=== PATIENT | female | born 1955 | race Asian ===

== ENCOUNTER → 2017-08-09 | Outpatient (CLI) | payer BC ==
--- NOTE | 2017-08-11 10:51 | Diagnostic Imaging Report ---
PROCEDURE: BONE DXA DUAL ENERGY COMPARISON:None. INDICATIONS:Disorder of bone density FINDINGS:Evaluation of the left hip and lumbar spine was performed utilizing DEXA Hologic bone densitometer. The study is technically adequate. The patient does not have any known previous non-traumatic fractures or other risk factors. Left hip total bone mineral density: 0.857 gm/cm2, T-score is -0.7 Z-score is 0.5. Lumbar spine total bone mineral density: 0.876 gm/cm2, T-score is -1.6, Z-score is 0.1. Impression: 1. Decreased bone mineral density of the left hip classified as osteopenia, fracture risk is increased. 2. Decreased bone mineral density of the lumbar spine classified as osteopenia, fracture risk is increased. 3. 10 year fracture risk of a major osteoporotic fracture is 4.4%. 10 year fracture risk of the hip fracture is 0.4%. The patient's fracture risk is compared to an age-matched control. Medical evaluation for secondary causes of low bone mineral density may be appropriate. Correlate clinically for the necessity and timing of the next bone mineral density study. National Osteoporosis Foundation recommendations: Initial therapy to reduce fracture risk in postmenopausal women with -BMD t-scores below -2.0 by central DXA with no risk factors -BMD t-scores below -1.5 by central CXA with one or more risk factors (first deg relative with hip fracture, prior personalfracture, low body weight, smoking) -A prior vertebral or hip fracture AACE n(Clinical Endocrinology) recommends treating the following: Postmenopausal women who have osteoporosis as diagnosed by fragility fractures or t-score -2.5 or below. Postmenopausal women who have risk factors (including hx of hip fracture, low body weight, smoking, risk of falling, high bone turnover, advancing age) and borderline low BMD T-scores of -1.5 or below Adequate intake of calcium (at least 1200mg/day) and vitamin D (400-800IU/day). Regular weight bearing and muscle-strengthening exercises Avoid smoking and excessive alcohol Moi De Guzman D.O. Dictated by: Moi De Guzman D.O. on 08/11/2017 at 10:52 Electronically approved by: Moi De Guzman D.O. on 08/11/2017 at 10:52
--- NOTE | 2017-08-11 16:00 | Diagnostic Imaging Report ---
#[id number] - MGSCRBIL #BILATERAL DIGITAL SCREENING MAMMOGRAM WITH CAD: 08/09/2017 CLINICAL: Routine screening. Comparison is made to exams dated: 05/15/2015 mammogram and 01/21/2014 mammogram - [facility]. Current study contains 4 films. The tissue of both breasts is heterogeneously dense. This may lower the sensitivity of mammography. Current study was also evaluated with a Computer Aided Detection (CAD) system. There are benign calcifications in both breasts. There also are benign lymph nodes in both breasts. Additionally there are benign vascular calcifications in the right breast. No significant masses, calcifications, or other findings are seen in either breast. There has been no significant interval change. IMPRESSION: BENIGN There is no mammographic evidence of malignancy. A 1 year screening mammogram is recommended. The patient will be notified by letter of the results. Moi rudolph/breezy:08/11/2017 13:14:16 Senior Administrator Support: Kadi KIDD(Virgie)(M), [facility] letter sent: Compared to Prior B9 Mammogram BI-RADS: 2 Benign
== END ==
LOC: MAMMO 14:04
PROVIDERS: ATTEND Family Medicine
DX: Z12.31 Encounter for screening mammogram for malignant neoplasm of breast (principal); M85.9 Disorder of bone density and structure, unspecified
CPT/HCPCS: 77067; 77080

== ENCOUNTER → 2018-08-28 | Outpatient (CLI) | payer MEDICARE, BC | LOC: MAMMO 09:55 | PROVIDERS: ATTEND Family Medicine | DX: Z12.31 Encounter for screening mammogram for malignant neoplasm of breast (principal) | CPT/HCPCS: 77067 ==

== ENCOUNTER 2020-02-20 07:54 | Observation (INO) | payer MEDICARE, BC ==
[2020-02-17 10:21] LABS: BASOPHILS % 0.4 % (0.0-1.0); EOSINOPHILS # (AUTO) 0.1 (0.0-0.4); EOSINOPHILS % 2.6 % (0.0-6.0); HEMATOCRIT 37.7 % (34.2-44.1); HEMOGLOBIN 12.6 g/dL (12.0-16.0); LYMPHOCYTES # (AUTO) 2.2 (1.0-3.2); LYMPHOCYTES % 43.1 % (18.0-39.1); MEAN CORPUSCULAR HEMOGLOBIN 30.4 pg (28-32); MEAN CORPUSCULAR HGB CONC 33.4 g/dL (31-35); MEAN CORPUSCULAR VOLUME 90.8 fL (81-99); MONOCYTES # (AUTO) 0.3 (0.2-0.8); MONOCYTES % 5.8 % (4.4-11.3); NEUTROPHILS # (AUTO) 2.4 (2.1-6.9); NEUTROPHILS % 47.9 % (38.7-80.0); PLATELET COUNT 212 x10e3/uL (140-360); RED BLOOD COUNT 4.15 x10e6/uL (3.6-5.1); RED CELL DISTRIBUTION WIDTH 11.9 % (11.7-14.4)
[2020-02-17 10:36] LABS: BLOOD UREA NITROGEN 14 mg/dL (7-26); BUN/CREATININE RATIO 18 (6-25); CALCIUM 9.2 mg/dL (8.4-10.2); CARBON DIOXIDE 32 mmol/L (22-29); CHLORIDE 102 mmol/L (98-107); EST GLOMERULAR FILTRATION RATE > 60 ML/MIN (60-); GLUCOSE 143 mg/dL (74-118); SODIUM 140 mmol/L (136-145)
[2020-02-17 10:38] LABS: INR 0.89; PROTHROMBIN TIME 12.5 seconds (11.9-14.5)
[2020-02-17 10:39] LABS: PARTIAL THROMBOPLASTIN TIME 37.2 seconds (23.8-35.5)
--- NOTE | 2020-02-17 11:38 | Diagnostic Imaging Report ---
EXAMINATION: CHEST 2 VIEWS INDICATION: Pre-operative COMPARISON: None FINDINGS: LINES/TUBES:None LUNGS:The lungs are well-inflated. No focal consolidation or pulmonary edema. PLEURA:No pleural effusion or pneumothorax. MEDIASTINUM:The cardiomediastinal silhouette appears normal in size and shape. BONES/SOFT TISSUES:No acute osseous injury. Partially visualized cervical spine fusion hardware. ABDOMEN:No free air under the diaphragm. IMPRESSION: No focal pneumonia or pulmonary edema. Signed by: Paula Hutton MD on 02/17/2020 11:35 AM
[~2020-02-20] VITALS: Ht 152.4 cm; Wt 51.3 kg
[2020-02-20] MEDS: LACTATED RINGER'S 1,000 ML IV SCH ×2 (01:50→17:19)
[~2020-02-20 07:54] MED LIST: ACETAMINOPHEN 1000 MG/100 ML 100 ML IV ONE; ASPIRIN81 MG PO; ATORVASTATIN CA20 MG PO; FISH OIL 1,0001 EAC2 PO; IBUPROFEN 800MG/ 200ML 200 ML IV ONE; LIDOCAINE HCL (LTA) 4 ML SOLN ONE; LISINOPRIL2.5 MG PO; VITAMIN D PO
[2020-02-20] MEDS ORDERED: CEFAZOLIN SOD 1 GM/NS 50ML 50 ML IV ONE (08:43)
[2020-02-20] MEDS ORDERED: VANCOMYCIN HCL 1 GM VIAL ONE (09:35)
[2020-02-20] MEDS ORDERED: LIDOCAINE 1% W/EPINEPHRINE 20 ML VIAL ONE (09:35)
[2020-02-20] MEDS ORDERED: THROMBIN FOR SOLN 5,000 UNIT VIAL ONE (09:35)
[2020-02-20] MEDS ORDERED: SEVOFLURANE INHAL SOLN 250 ML PEN BTL ONE (12:17)
[2020-02-20] MEDS ORDERED: DEXAMETHASONE SOD PHOS INJ 4 MG/ML VIAL ONE (12:17)
[2020-02-20] MEDS ORDERED: LIDOCAINE HCL 2% LOCAL INJ 5 ML SDV VIAL INJ ONE (12:17)
[2020-02-20] MEDS ORDERED: ONDANSETRON HCL INJ 2MG/ML 2ML 2 MG/ML VIAL ONE (12:17)
[2020-02-20] MEDS ORDERED: GLYCOPYRROLATE INJ 0.2 MG/ML VIAL ONE (12:17)
[2020-02-20] MEDS ORDERED: NEOSTIGMINE 1 MG/ML 10ML VIAL ONE (12:17)
[2020-02-20] MEDS ORDERED: PROPOFOL IV EMULSION 10 MG/ML 20 ML VIAL ONE (12:17)
[2020-02-20] MEDS ORDERED: LIDOCAINE HCL 2% JELLY 5 ML TUBE ONE (12:17)
[2020-02-20] MEDS ORDERED: ROCURONIUM BROMIDE 10 MG/ML 5ML VIAL IV ONE (12:17)
[2020-02-20] MEDS ORDERED: CARISOPRODOL 350 MG TAB PO PRN (12:45)
[2020-02-20] MEDS ORDERED: OXYCODONE/ACETAMINOPHEN 5-325 1 EACH TABLET PO PRN (12:45)
[2020-02-20] MEDS ORDERED: ACETAMINOPHEN 325 MG TAB PO PRN (12:45)
[2020-02-20] MEDS ORDERED: HYDROMORPHONE 2MG/ML 2 MG/ML ML IV PRN (12:45)
[2020-02-20] MEDS ORDERED: ONDANSETRON HCL INJ 2MG/ML 2ML 2 MG/ML VIAL IV PRN (12:45)
[2020-02-20] MEDS ORDERED: MORPHINE SULFATE 5 MG/ML VIAL IM PRN (12:45)
[2020-02-20] MEDS ORDERED: MAGNESIUM/ALUMINUM/SIMETHICONE 30 ML UDC PO PRN (12:45)
[2020-02-20] MEDS ORDERED: PROMETHAZINE HCL (IM) 25 MG/ML VIAL IM PRN (12:45)
[2020-02-20] MEDS ORDERED: MIDAZOLAM HCL 2 MG/2 ML VIAL ONE (13:04)
[2020-02-20] MEDS ORDERED: FENTANYL CITRATE/PF 100MCG/2 ML INJ ONE (13:04)
--- NOTE | 2020-02-20 13:08 | Operative Report ---
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 PROCEDURES: 1. C3-4 anterior cervical diskectomy and microsurgical osteophyte resection and allograft fusion, 79135. 2. C4-5 anterior cervical diskectomy and microsurgical osteophyte resection and allograft fusion, 60770. 3. Preparation of iliac crest allograft, 89803. 4. C3-C4-C5 anterior cervical plating with Synthes CSLP plate, 07836. 5. Removal of C5-C6-C7 plate, 97606. 6. Exploration of C5-C6-C7 fusion. ANESTHESIA: General. INDICATIONS: The patient is a 64-year-old woman, who has previously undergone C5-6 and C6-7 fusion and plating by la in the distant past. She now presents with large disk herniations and osteophyte formation at C3-4 and C4-5 with cervical radiculomyelopathy. She was taken to surgery for two-level anterior cervical decompression and fusion and removal of the old plate. PROCEDURE IN DETAIL: After induction of general anesthesia, the patient was placed on the operating table in a supine position. The right side of the neck was prepped and draped in sterile fashion. The fluoroscopic C-arm was positioned in cross-table lateral orientation. A transverse incision was created. The right side of the neck superimposed on the C5 vertebral body as determined by fluoroscopy. The platysma was divided in line with the incision. A subplatysmal dissection was carried out and avascular plane of dissection was developed. The esophagus was retracted to the left. The scar layer overlying the previous anterior cervical plate was resected and the plate was visualized. Each of the 6 locking screws and each of the 6 bone screws within the plate were unscrewed and removed. The plate was mobilized and removed. The underlying fusion at C5-6 and C6-7 was explored and found to be solid. Attention was redirected to the C3-4 and C4-5 segments. The attachments of longus colli muscles to the anterolateral aspects of vertebral bodies of C3, C4, and C5 were divided. The anterior longitudinal ligament was resected. [place] posts were inserted into C3 and C5 and the [place] distractor was used to distract both disk spaces simultaneously. The anterior annuli of disks were incised with a #11 blade. The contents of both disks were thoroughly evacuated with angled curettes and pituitary rongeurs. The posterior osteophytes were meticulously drilled under operating microscope with a 2 mm cutting bur until they were completely removed. The posterior annulus of the disk, herniated disk material, and the posterior longitudinal ligament were resected layer by layer until the dura was fully exposed and decompressed. The medial aspects of the uncinate processes were resected bilaterally at both levels to further expose any compressed origins of the corresponding nerve root. After satisfactory decompression had been achieved, the endplates were prepared for fusion. Two pieces of tricortical iliac crest allograft were cut to the size and shape of the disk spaces and were inserted into disk spaces under distraction and fluoroscopic guidance. The distraction was released and distraction posts were removed. A Synthes CSLP variable type anterior cervical plate was selected and affixed to the vertebral bodies of C3, C4, and C5 with 3 pairs of screws. Seven screws were 16 x 4.5 mm in diameter. Two of them were 14 x 4.35 mm in diameter. All screws were drilled and tapped on the lateral fluoroscopic guidance. All screws were locked with the appropriate locking screws. An excellent construct was obtained. The wound was copiously irrigated with bacitracin solution. Meticulous hemostasis was secured. Retractor was removed. The platysma was closed with 3-0 Vicryl sutures after Hemovac drain was placed. The subcutaneous layer was closed with 3-0 Monocryl sutures in subcuticular fashion. Steri-Strips and dressing were applied. The patient was awakened, extubated, and taken to postanesthesia care unit in stable condition. No intraoperative complications were encountered. Estimated blood loss was 50 mL. Roscoe Arora MD PP/MODL /[id number]
[2020-02-20] MEDS ORDERED: HYDROMORPHONE 1MG/1ML INJ ONE (13:30)
[2020-02-20 13:55] VITALS: BP 145/68
[2020-02-20 14:00] VITALS: BP 145/68
[2020-02-20] MEDS ORDERED: CEFAZOLIN SOD 1 GM/NS 50ML 50 ML IV SCH (14:00)
[2020-02-20 16:17] VITALS: BP 141/73
[2020-02-20] MEDS: CEFAZOLIN SOD 1 GM/NS 50ML 50 ML IV SCH (17:19)
--- NOTE | 2020-02-20 19:45 | NUR ---
BEDSIDE SHIFT REPORT RECEIVED FROM DAY RN. PT HAS NECK COLLAR ON. HEMOVAC DRAIN CHARGED. PT A&0 X3. PT AMBULATE TO BATHROOM. RT PIV RT HAND SITE HEALTHY. PT DENIES PAIN. CALL LIGHT WITHIN REACH. BED IN LOW POSITION. BED ALARM ON.
--- OUTSIDE RECORDS SUMMARY | 2020-02-20 19:55 | XMS REPORT | Continuity of Care Document ---
Author Author [facility] t Organization [facility] Address [address] [place] [address] Dr. Walsh [address] [place] [phone] Phone Unavailable Care Team Providers Care Para Educator Name Role Phone REINA FRANK Attphys Unavailable Aparna CHAVEZ Attphys Unavailable Problems This patient has no known problems. Allergies, Adverse Reactions, Alerts This patient has no known allergies or adverse reactions. Medications This patient has no known medications. Procedures This patient has no known procedures. Results Test Description Test Time Test Comments Results Result Comments Source CHEST 2 VIEWS 2020-02-17 11:34:00 [facility] CENTERName: TEN SIFUENTES TO : 1955 Sex: F [facility] [address] [place] [address] Patient Name: TEN SIFUENTES TO MR #: [id number] : 1955 Age/Sex: 64/F Req #: [id number] [facility] Physician: Ordered by: REINA FRANK MD Report #: [id number] Location: OR Room/Bed: Procedure: [id number] DX/CHEST 2 VIEWS Exam Date: 02/17/20 Exam Time: 1030 REPORT STATUS: Signed EXAMINATION: CHEST 2 VIEWS INDICATION: Pre-operative COMPARISON: None FINDINGS: LINES/TUBES:None LUNGS:The lungs are well-inflated. No focal consolidation or pulmonary edema. PLEURA:No pleural effusion or pneumothorax. MEDIAS TINUM:The cardiomediastinal silhouette appears normal in size and shape. BONES/SOFT TISSUES:No acute osseous injury. Partially visualized cervical spine fusion hardware. ABDOMEN:No free air under the diaphragm. IMPRESSION: No focal pneumonia or pulmonary edema. Signed by: Grace Hinton MD on 02/17/2020 11:35 AM Dictated By: GRACE HINTON MD 1135 Transcribed By: JESSI on 02/17/20 1135 COPY TO: REINA FRANK MD MAMMOGRAPHY DIGITAL SCR BILAT 2018-08-28 10:50:00 [place] [address] Patient Name: TEN SIFUENTES MR #: [id number] : 1955 Age/Sex: 63/F Req #: [id number] Adm Physician: Ordered by: PEACE CHAVEZ MD Report #: [id number] Location: MAMMO Room/Bed: Procedure: [id number] MG/MAMMOGRAPHY DIGITAL SCR BILAT Exam Date: 08/28/18 Exam Time: 1003 REPORT STATUS: Signed #[id number] - MGSCRBIL #BILATERAL DIGITAL SCREENING MAMMOGRAM WITH CAD: 08/28/2018 CLINICAL: Routine screening. Comparison is made to exams dated: 08/09/2017 mammogram and 05/15/2015 mammogram - [facility]. There are scattered fibroglandular elements in both breasts. Current study was also evaluated with a Computer Aided Detection (CAD) system. There are benign calcifications in both breasts. There also are benign lymph nodes in both breasts. No significant masses, calcifications, or other findings are seen in either breast. There has been no significant interval change. IMPRESSION: BENIGN There is no mammographic evidence of malignancy. A 1 year screening mammogram is recommended. The patient will be notified by letter of the results. KIRSTEN MCKENZIE M.D., mc/breezy:09/12/2018 09:44:47 Gunner Mate: Kadi KIDD(Virgie)(Marcello), [facility] letter sent: Normal Exam Mammogram BI-RADS: 2 Benign Dictated By: HEIDI MCKENZIE MD 3 Transcribed By: BREEZY on 09/12/18943 COPY TO: PEACE CHAVEZ MD BONE DXA DUAL ENERGY [place] [address] Patient Name: TEN SIFUENTES MR #: [id number] : 1955 Age/Sex: 61/F Req #: [id number] Adm Physician: Ordered by: PEACE CHAVEZ MD Report #: [id number] Location: MAMMO Room/Bed: Procedure: [id number] DX/BONE DXA DUAL ENERGY Exam Date: Exam Time: REPORT STATUS: Signed PROCEDURE: BONE DXA DUAL ENERGY COMPARISON: None. INDICATIONS: Disorder of bone density FINDINGS: Evaluation of the left hip and lumbar spine was performed utilizing DEXA Hologic bone densitometer. The study is technically adequate. The patient does not have any known previous non-traumatic fractures or other risk factors. Left hip total bone mineral density: 0.857 gm/cm2, T-score is -0.7 Z-score is 0.5. Lumbar spine total bone mineral density: 0.876 gm/cm2, T-score is -1.6, Z- score is 0.1. Impression: 1. Decreased bone mineral density of the left hip classified as osteopenia, fracture risk is increased. 2. Decreased bone mineral density of the lumbar spine classified as osteopenia, fracture risk is increased. 3. 10 year fracture risk of a major osteoporotic fracture is 4.4%. 10 year fracture risk of the hip fracture is 0.4%. The patient's fracture risk is compared to an age-matched control. Medical evaluation for secondary causes of low bone mineral density may be appropriate. Correlate clinically for the necessity and timing of the next bone mineral density study. National Osteoporosis Foundation recommendations: Initial therapy to reduce fracture risk in postmenopausal women with -BMD t-scores below -2.0 by central DXA with no risk factors -BMD t-scores below -1.5 by central CXA with one or more risk factors (first deg relative with hip fracture, prior personalfracture, low body weight, smoking) -A prior vertebral or hip fracture AACE n(Clinical Endocrinology) recommends treating the following: Postmenopausal women who have osteoporosis as diagnosed by fragility fractures or t-score -2.5 or below. Postmenopausal women who have risk factors (including hx of hip fracture, low body weight, smoking, risk of falling, high bone turnover, advancing age) and borderline low BMD T-scores of -1.5 or below Adequate intake of calcium (at least 1200mg/day) and vitamin D (400- 800IU/day). Regular weight bearing and muscle-strengthening exercises Avoid smoking and excessive alcohol Jameson De Guzman D.O. Dictated by: Jameson De Guzman D.O. on 08/11/2017 at 10:52 Electronically approved by: Jameson De Guzman D.O. on 08/11/2017 at 10:52 Dictated By: JAMESON DE GUZMAN DO 1052 Transcribed By: ANDREW on 08/11/17 1052 COPY TO: PEACE CHAVEZ MD MAMMOGRAPHY DIGITAL SCR BILAT [place] [address] Patient Name: TEN SIFUENTES MR #: [id number] : 1955 Age/Sex: 61/F Req #: [id number] Adm Physician: Ordered by: PEACE CHAVEZ MD Report #: [id number] Location: MAMMO Room/Bed: Procedure: [id number] MG/MAMMOGRAPHY DIGITAL SCR BILAT Exam Date: 08/09/17 Exam Time: 1406 REPORT STATUS: Signed #[id number] - MGSCRBIL #BILATERAL DIGITAL SCREENING MAMMOGRAM WITH CAD: 08/09/2017 CLINICAL: Routine screening. Comparison is made to exams dated: 05/15/2015 mammogram and 01/21/2014 mammogram - [facility]. Current study contains 4 films. The tissue of both breasts is heterogeneously dense. This may lower the sensitivity of mammography. Current study was also evaluated with a Computer Aided Detection (CAD) system. There are benign calcifications in both breasts. There also are benign lymph nodes in both breasts. Additionally there are benign vascular calcifications in the right breast. No significant masses, calcifications, or other findings are seen in either breast. There has been no significant interval change. IMPRESSION: BENIGN There is no mammog raphic evidence of malignancy. A 1 year screening mammogram is recommended. The patient will be notified by letter of the results. Jameson rudolph/breezy:08/11/2017 13:14:16 Gunner Mate: Kadi HENSLEY)(M), [facility] letter sent: Compared to Prior B9 Mammogram BI-RADS: 2 Benign Dictated By: JAMESON DE GUZMAN DO 1314 Transcribed By: BREEZY on 08/11/17 1314 COPY TO: PEACE CHAVEZ MD
[2020-02-20 20:00] VITALS: BP 138/56
[2020-02-20] MEDS ORDERED: ZOLPIDEM TARTRATE 5 MG TAB PO PRN (21:00)
[2020-02-20] MEDS ORDERED: ATORVASTATIN 20 MG TAB PO SCH (21:00)
[2020-02-21] VITALS: BP 145/53
[2020-02-21] MEDS: CEFAZOLIN SOD 1 GM/NS 50ML 50 ML IV SCH ×2 (01:50→08:31)
[2020-02-21 04:00] VITALS: BP 130/68
[2020-02-21] MEDS: LACTATED RINGER'S 1,000 ML IV SCH (06:13)
[2020-02-21 08:30] VITALS: BP 133/69
--- NOTE | 2020-02-21 08:31 | Diagnostic Imaging Report ---
Radiographs of the cervical spine HISTORY: Pain COMPARISON: 09/26/2008 FINDINGS: Bones: No acute displaced fracture. There is solid bony fusion at the vertebral body level from C5 through C7. Osseous alignment is within normal limits. Joints: Patient is status post anterior fusion from C3 through C5 with intervertebral body spacer material. The surgical hardware is intact without evidence of failure or loosening. Soft tissues: The soft tissues appear unremarkable. IMPRESSION: Patient is status post anterior fusion from C3 through C5 with intervertebral body spacer material. The surgical hardware is intact without evidence of failure or loosening. Signed by: Dr. Farhad Laura M.D. on 02/21/2020 8:28 AM
--- NOTE | 2020-02-21 08:36 | NUR ---
BRUCE delivered and explained to pt and son at bedside. They verbalized understanding. Copy given to pt's son. Signed copy placed in chart.
[2020-02-21 08:50] VITALS: BP 133/69
[2020-02-21] MEDS ORDERED: LISINOPRIL 2.5 MG TAB PO SCH (09:00)
--- NOTE | 2020-02-21 10:11 | NUR ---
Hemovac drain removed, no bleeding observed. patient tolerated well.
== END 2020-02-21 09:52 | disposition home or self-care (01) ==
LOC: OR 07:54 → PACU V 12:32 → MED/SURG 13:40
PROVIDERS: ADMIT Neurological Surgery; ATTEND Neurological Surgery
DX: M50.01 Cervical disc disorder with myelopathy, high cervical region (principal); M54.12 Radiculopathy, cervical region; E78.5 Hyperlipidemia, unspecified; I10 Essential (primary) hypertension; I25.10 Atherosclerotic heart disease of native coronary artery without angina pectoris; Z11.59 Encounter for screening for other viral diseases; Z01.810 Encounter for preprocedural cardiovascular examination; Z01.812 Encounter for preprocedural laboratory examination; Z01.818 Encounter for other preprocedural examination; Z20.828 Contact with and (suspected) exposure to other viral communicable diseases
CPT/HCPCS: 20931; 22551; 22552; 22845; 22855; 36415; 71046; 72040; 76000; 80048; 85025; 85610; 85730; 86850; 86900; 88300; 88304; 93005; C1713 ×6; C1763; G0378 ×2; J0131; J0690 ×2; J1100; J1170; J2001 ×2; J2250; J2270; J2405; J2704; J2710; J3010; J3370; J7121 ×2; U0002

== ENCOUNTER → 2020-03-19 | Outpatient (CLI) | payer MEDICARE, BC ==
[~2020-03-19] MED LIST changes: -ACETAMINOPHEN 1000 MG/100 ML 100 ML IV ONE; -IBUPROFEN 800MG/ 200ML 200 ML IV ONE; -LIDOCAINE HCL (LTA) 4 ML SOLN ONE
--- NOTE | 2020-03-19 11:33 | Diagnostic Imaging Report ---
Cervical spine, 4 views. History: Postop, posterior neck pain. Discussion: The cervical spine is visualized on the lateral view from C1 through the top of T1. There is straightening of the normal lordotic curvature. Anterior plate and screws with interbody bone graft are present from C3 through C5 in anatomic alignment. Surgical hardware is intact. There is no evidence of subluxation or posterior splaying with flexion and extension views. Osseous fusion of the C6-C7 vertebral bodies is also noted. The prevertebral soft tissues are within normal limits. IMPRESSION: Status post C3-C5 ACDF without evidence of instability on flexion and extension views. Signed by: Ortiz Long on 03/19/2020 11:30 AM
== END ==
LOC: RAD 09:31
PROVIDERS: ATTEND Neurological Surgery
DX: M50.20 Other cervical disc displacement, unspecified cervical region (principal); M43.22 Fusion of spine, cervical region
CPT/HCPCS: 72050

== ENCOUNTER → 2020-09-29 | Outpatient (CLI) | payer MEDICARE, BC | LOC: RAD 09:10 | PROVIDERS: ATTEND Neurological Surgery | DX: M50.20 Other cervical disc displacement, unspecified cervical region (principal); M43.22 Fusion of spine, cervical region | CPT/HCPCS: 72050 ==

== ENCOUNTER → 2021-08-02 | Outpatient (CLI) | payer MEDICARE, BC | LOC: MAMMO 08:36 | PROVIDERS: ATTEND Family Medicine | DX: Z12.31 Encounter for screening mammogram for malignant neoplasm of breast (principal) | CPT/HCPCS: 77067 ==

== ENCOUNTER → 2023-02-21 | Outpatient (REF) | payer MEDICARE, BC | LOC: MAMMO 08:44 | PROVIDERS: ATTEND Family Medicine | DX: Z12.31 Encounter for screening mammogram for malignant neoplasm of breast (principal) | CPT/HCPCS: 77067 ==

== ENCOUNTER → 2025-01-14 | Outpatient (RCR) | payer MEDICARE, BC | LOC: PT 01-01 09:04 | PROVIDERS: ATTEND Family Medicine | DX: M25.552 Pain in left hip (principal); M79.605 Pain in left leg ==